=== PATIENT | male | born 1940 | race Caucasian/White ===

== ENCOUNTER 2023-11-19 19:17 | Observation (INO) | payer MEDICARE, OTHER, SELFPAY ==
[2023-11-19] VITALS (9 sets, daily range): BP systolic 114–133; BP diastolic 53–67; PULSE 69; O2SAT 99; BMI 29.1
[2023-11-19 12:31] LABS: % Basophils 0.7 % (0-2); % Eosinophils 3.6 % (0-6); % Immature Granulocytes 0.3 % (0-0.5); % Lymphocytes 22.7 % (20.5-51.1); % Monocytes 13.3 % (1.7-9.3); % Neutrophils 59.4 % (42.2-75.2); Absolute Basophils 0.1 10^3/uL (0-0.2); Absolute Eosinophils 0.2 10^3/uL (0-0.7); Absolute Lymphocytes 1.5 10^3/uL (1.2-3.4); Absolute Monocytes 0.9 10^3/uL (0.1-0.6); Hematocrit 43.7 % (39.0-52.0); Hemoglobin 13.6 g/dL (13.0-18.0); Mean Corp Hgb Conc. 31.1 g/dL (33.0-37.0); Mean Corpuscular Hgb 27.9 pg (27.0-31.0); Mean Corpuscular Volume 89.5 fL (80.0-94.0); Mean Platelet Volume 9.4 fL (7.4-10.4); Nucleated Red Blood Cells % 0 % (-); Platelet Count 188 10^3/uL (130-400); Red Blood Cell Count 4.88 10^6/uL (4.70-6.10); Red Cell Dist. Width 14.2 % (11.5-14.5); White Blood Cell Count 6.7 10^3/uL (4.8-10.8)
[2023-11-19 12:33] LABS: ALT (SGPT) 27 U/L (0-50); AST (SGOT) 34 U/L (17-59); Albumin 4.1 g/dl (3.5-5.0); Alkaline Phosphatase 76 U/L (38-126); Blood Urea Nitrogen 14 mg/dl (9-20); Calcium 9.6 mg/dl (8.4-10.2); Carbon Dioxide 31 mmol/L (22-30); Chloride 105 mmol/L (98-107); Glucose 89 mg/dl (70-99); Potassium 3.8 mmol/L (3.5-5.1); Sodium 144 mmol/L (135-145); Total Bilirubin 1.4 mg/dl (0.2-1.3); Total Protein 6.4 g/dl (6.3-8.2); eGFR > 60.00
[2023-11-19 12:41] LABS: NT-proBNP 1070 pg/ml
[2023-11-19] MEDS: LASIX 40 MG PO (13:24)
--- NOTE | 2023-11-19 13:24 | ED.GENMED ---
History of Present Illness
General
Chief Complaint: Weakness
Source: patient, spouse and family
Time Seen by Provider: 11/19/23 13:03
History of Present Illness
History of Present Illness:
83-year-old male with past medical history of COPD, CHF, previous MA, hypertension, hyperlipidemia presenting to the emergency department for evaluation with family who report that over the last week or so patient has had significantly increased
fatigue noting that he has been sleeping for most of the day which is very atypical for him. They note associated with this fatigue is generalized weakness with difficult time even getting out of bed and transferring himself, 2 falls, bilateral
lower extremity edema and needing significantly more assistance than usual. They note that patient had been still working 2 days a week but had recently quit his job but notes have been still very active around the house including doing yard work
and regular house chores but has been unable to do any of this over the last week. Patient's was in this emergency department around 1 week ago with a viral-like syndrome and family was not sure if patient had similar but notes he has not had
any viral-like symptoms including URI like illness, cough, fevers, sinus congestion, abdominal pain, nausea, vomiting or urinary symptoms.
Past History
Past History
ED Past Medical History: Arrthythmia (Details unknown), CAD, CHF, COPD, HTN, Hypercholesterolemia, MA, Valvular disease and Other (Ischemic cardiomyopathy, hypertension, recurrent UTIs , prostatic hypertrophy, urinary retention, hearing impairment
in the left ear, impaired vision, joint pain, heart valve disorder); Negative NIDDM
ED Past Surgical History: Cardiac (Cardiac stents) and Other (TURP)
Patient has exhibited threatening behavior?: No
PSI?: No
Social History
Tobacco: Former smoker
Alcohol: Occasional
Drug: None
Personal:
Living: with family
Employment: Retired
Family History
Family History: Hypertension
Review of Systems
Review of Systems
All Other Systems: ROS reviewed and negative except as documented in HPI and ROS
Phy Exam
Physical Exam
Physical Exam:
GENERAL: Alert , in no apparent distress, soft-spoken
EYE: Clear conjunctiva
NECK: Supple
ENT: o/p clr, mmm.
CARDIAC: Regular rate and rhythm, systolic murmur at the left sternal border.
LUNGS: Faint wheeze in the posterior lung zeng at the bases bilateral, no respiratory distress, no tachypnea, no accessory muscle use
ABDOMEN: Soft, without focal tenderness, no r/g, no cvat
NEUROLOGICAL: Alert and oriented
SKIN: Warm and dry, skin intact.
MUSCULOSKELETAL: Trace pitting bilateral edema, well perfused.
PSYCH: Normal and appropriate interaction.
Scores
Heart Failure Risk
Heart Failure Risk Score: Yes
History of Stroke or TIA: No
History of intubation for respiratory distress: No
Heart rate on ED arrival >/= 110: No
SaO2 <90% on arrival on room air: No
HR >/=110 during 3min walk test (or too ill to perform test): Yes
ECG has acute ischemic changes: No
Urea >/=12mmol/L (BUN 33.6mg/dL): No
Serum CO2>/=35mmol/L: No
Troponin I or T elevated to MA Level (0.4mg/dL): No
NT-proBNP >/=5,000ng/L (5,000pg/ml): No
HF Risk Score: 2
Admission Status: MEDIUM RISK 9.2% Consider observation or discharge to home with homecare & f/u visit to PCP/Fireworks Inspector, or SNF for treatment
Heart Score for Chest Pain Patients
STEMI patient?: Not applicable
Withdrawal Assessment of Alcohol
Withdrawal Assessment Completed?: Not applicable
Course
Orders/Labs/Results
Orders:
Orders
11/19/23 11:51
CR Chest - 2 Views Urgent
Comment:
Reason For Exam: respiratory distress
11/19/23 11:54
Complete Blood Count/With Diff Urgent
Comprehensive Metabolic Panel Urgent
NT-proBNP Urgent
11/19/23 13:22
Furosemide [Lasix] 40 mg .ROUTE .STK-MED ONE
Furosemide [Lasix] 40 mg PO NOW STA
Physical Therapy Consult [Pt Eval And Treat] Urgent
Activity Level: Ambulate
11/19/23 13:31
Electrocardiogram (*1) Urgent
Reason for Study: Fatigue / Weakness
EKG- Treatment ONCE
11/19/23 14:08
Case Management Consult ONCE
Case Management Consult: Discharge Planning
11/19/23 18:38
Admit/Transfer Patient As Directed
Co-Sign Provider:
Level of Care: Observation services
Assign to:: Telemetry
Physician / Group: Dr. Jhon Chirinos/Hospitalists
Diagnosis: Generalized Weakness
Reason for Telemetry: Arrhythmia
Date to Stop Telemetry: 11/22/23
Time to Stop Telemetry: 11:00
11/19/23 18:41
Code Status As Directed
Resuscitation Status: Full Code
11/19/23 18:47
Pt Eval And Treat Routine
Activity Level: As Tolerated
11/19/23 18:48
Orthostatic Vital Signs As Directed
Orthostatic VS Frequency: Daily
11/22/23 11:00
DC Protocol for Telemetry ONCE
Abnormal Lab Results
11/19/23
11:54
MCHC 31.1 L g/dL
(33.0-37.0)
Absolute Monos (auto) 0.9 H 10^3/uL
(0.1-0.6)
Monocytes % 13.3 H %
(1.7-9.3)
Carbon Dioxide 31 H mmol/L
(22-30)
Total Bilirubin 1.4 H mg/dl
(0.2-1.3)
11/19/23 11:54
11/19/23 11:54
Vital Signs
Initial and Last Documented VS:
Initial Vital Signs
Temp Pulse Resp BP Pulse Ox
98.0 F 68 19 126/61 95
11/19/23 11:48 11/19/23 11:48 11/19/23 11:48 11/19/23 11:48 11/19/23 11:48
Last Documented Vital Signs
Temp Pulse Resp BP Pulse Ox
98.0 F 69 17 131/58 92
11/19/23 11:48 11/19/23 18:45 11/19/23 18:45 11/19/23 14:00 11/19/23 18:45
MDM/Problems Addressed
Differential Diagnosis Includes:
CHF, COPD, viral syndrome, electrolyte derangement
MDM/Problems Addressed:
83-year-old male presenting the emergency department for evaluation of generalized fatigue over the last 6 days or so. Family notes during this time he has had 2 separate falls but has had needed significantly more help transferring and moving at
home which is very atypical for the patient. Family notes that he has had some worsening lower extremity edema but patient notes that he has not been feeling dyspnea on exertion or acutely short of breath similar to the last time he needed
admission a little over 1 year ago. Labs have been initiated in triage and are largely unremarkable and reassuring with no leukocytosis, normal hemoglobin, normal electrolytes and a BNP that is at patient's baseline. Chest x-ray shows mild lung
hyperinflation but no signs of infection. He does have some mild lower extremity edema so we will increase his Lasix temporarily from 20 mg to 40 over the next couple of days. Will order physical therapy consult to help with disposition planning.
Reassessment following.
Chronic conditions affecting care: COPD and Other (CHF)
*Radiology
Radiology exam reviewed: preliminary read by ED provider (COPD findings)
*Pulse Oximetry
Patient hypoxic: no
*Electrical Engineering Professor Interpretation
Rate: normal
Rhythm: sinus
*Critical Care Note
Total Time (30-74mins, 75-104mins- exclusive of procedures): Not Applicable
Patient Management
Discussion with other providers: Hospitalist and Other
Escalation/DeEscalation of care consider admission/obs:
Patient seen by case management and physical therapy. PT did state that patient had some difficulty with transitioning and did not seem fully stable while doing so but once able to get up was able to shuffle but was not stat. Case management
attempted to get patient placed at facility today however unable to do so. Patient not safe disposition home. Will admit overnight for case management to continue working to try and get patient to rehab. Hospitalist team is aware and accepts for
continued evaluation and treatment.
ED Attending Note
-
Portions of this chart may have been created with voice recognition software.� Occasional wrong word or��sound alike� substitutions may have occurred due to the inherent limitations of voice recognition software.
Discharge Plan
Departure
Patient Disposition: Admit
Date of Disposition: 11/19/23
Time of Disposition: 17:41
Presentation/result/management discussed w/ accepting MD/DO: Hospitalist
Discharge Problem:
Generalized weakness, Frequent falls, Edema
Interventions
Interventions:
*Risk Screen - Suicide Last Done: 11/19/23 13:02
*General Assessment Last Done: 11/19/23 11:48
*Neglect/Abuse Screening Last Done: 11/19/23 13:02
ED- Fall Risk Assessment Last Done: 11/19/23 13:03
*ED COVID-19 Vaccine History Last Done: 11/19/23 13:02
ED- Cardiac Assessment Last Done: 11/19/23 13:09
ED- Neurological Assessment Last Done: 11/19/23 13:10
ED- Pulmonary Assessment Last Done: 11/19/23 13:30
--- NOTE | 2023-11-19 15:59 | CM ---
CM received consult for discharge planning. Patient seen bedside with family ( and two daughters, Niya and Li). Patient resides with in a multiple story home, 6 steps to enter, recently moved to first floor of home due to weakness
and falls. Daughters report patient has been falling frequently, patients uses a cane and is unable to assist with getting patient up. Patient uses a cane for ambulation, recently stopped working and driving due to weakness. Patient PCP
[facility], pharmacy [facility]. PT recommendation of SNF for patient, patient with no history of VN or SNF. Family and patient agreeable for short term rehab with goal to return home. Patient confirmed Medicare is primary insurance. CM
spoke with [facility] inside account representative, confirmed patient is eligible for waiver program. Patient will need to be seen by Hospitalist with recommendation of SNF in documentation. TT sent to Physician with update. Referral sent to SNF that participate in
[facility] waiver. CM will continue to follow for all discharge planning needs.
Plan; SNF pending accepting facility, Patient will need to be seen by Hospitalist with recommendation of SNF in documentation.
--- NOTE | 2023-11-19 18:14 | HPS.HSE ---
Family Physician
-
Family Physician: Marcus Mustafa DO
Chief Complaint
-
Generalized Weakness
History of Present Illness
83 y/o male with past medical history of COPD, CHF, coronary artery disease with history of stenting, previous myocardial infarction, BPH s/p TURP, hypertension and hyperlipidemia presented with falls, generalized weakness and fatigue. Patient's
family was present in the room and helped with the patient's history and physical. 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 Patient's was in this
emergency department around 1 week prior with a viral-like syndrome and family was not sure if patient. Denied any fever, chest pain, SOB, numbness or tingling.
Medical History
Past Medical History
Past Medical History: Reports Other (As per HPI above)
Past Surgical History: Reports Other (PTCA with Stents. TURP. Blepharoplasty.)
Social History
Tobacco: Former Smoker
Alcohol: None
Family History
Family History: Cancer
Allergies / Home Medications
Allergies reflects when Allergies were last updated in [employer].
Home Medications with original date entered in [employer]
Allergy/Medication List:
Allergies
Allergy/AdvReac Type Severity Reaction Status Date / Time
No Known Allergies Allergy Verified 08/25/22 04:28
Home Medications
ascorbic acid (vitamin C) 1,000 mg tablet (Vitamin C) 1,000 mg PO Daily Supplement 05/08/18
carvedilol 6.25 mg tablet 6.25 mg PO BID Blood pressure 05/08/18
tamsulosin 0.4 mg capsule (Flomax) 0.4 mg PO QPM Urinary issue 05/08/18
aspirin 81 mg tablet,delayed release 81 mg PO QPM Blood clot prevention/tx 08/25/22
cholecalciferol (vitamin D3) 25 mcg (1,000 unit) capsule (Vitamin D3) 25 mcg PO DAILY Supplement 08/25/22
methenamine hippurate 1 gram tablet (Hiprex) 1 g PO BID Infection 08/25/22
therapeutic multivitamin 1 tab PO DAILY Supplement 08/25/22
budesonide-formoterol HFA 160 mcg-4.5 mcg/actuation aerosol inhaler (Symbicort) 1 inh inhalation R DAILY 11/19/23
furosemide 20 mg tablet (Lasix) 20 mg PO NOON 11/19/23
Review of Systems
-
A 12 point ROS was completed and negative except as noted: Yes
Physical Exam
Vital Signs
Vital Signs
Temp Pulse Resp BP Pulse Ox
98.0 F 72 17 131/58 93
11/19/23 11:48 11/19/23 15:30 11/19/23 15:30 11/19/23 14:00 11/19/23 15:15
Physical Exam
General: No Apparent Distress and Comfortable
HEENT: NormoCephalic and Moist mucous membranes
Respiratory: Decreased Breath Sounds
Cardiac: S1/S2 and Regular Rhythm
GI: Soft, Non Tender and Normal Bowel Sounds
Musculoskeletal: Edema, Left Lower Extremity and Edema, Right Lower Extremity
Skin: Warm and Dry
Neuro: Awake, Alert, AO x 3 and Nonfocal/grossly intact (Cranial Nerves, Strength and Sensation grossly intact bilaterally)
Psych: Calm
Laboratory Results
-
11/19/23 11:54
11/19/23 11:54
Laboratory Results
Total Bilirubin 1.4 mg/dl (0.2-1.3) H 11/19/23 11:54
AST 34 U/L (17-59) 11/19/23 11:54
ALT 27 U/L (0-50) 11/19/23 11:54
Alkaline Phosphatase 76 U/L (38-126) 11/19/23 11:54
Impression/Plan
-
Assessment/Plan
Generalized Weakness
-Possibly a viral syndrome, since patient's family member recently was diagnosed with a viral syndrome
-Check TSH, vitamin B12, vitamin D
-Check CK
-Orthostatic vital signs
-Tele monitoring
-PT/OT
COPD
History of Acute Hypoxemic Respiratory Failure, multifactorial, due to acute COPD exacerbation and acute on chronic heart failure with moderately reduced ejection fraction
-Continue Symbicort or home equivalent
-Continue treatment for CHF as below
CAD with history of stent
Chronic HFpEF
-Continue Coreg
-Continue home Lasix
-Daily weights
-I's and O's
-Seen by cardiology last admission
-Will need to check whether patient is still on statin
Essential Hypertension
-cont BB
BPH:
-cont flomax
FULL/Lovenox
--- NOTE | 2023-11-19 20:00 | PTCARENOTE ---
Pt transferred from ED. Pt ambulated into room with assistance. Pt AAOX3, VSS, able to make needs known. Pt oriented to unit, call jurado within reach, bed in lowest position.
[2023-11-19] MEDS: LOVENOX 40 MG SC (20:36)
[2023-11-19] MEDS: COREG 6.25 MG PO (20:36)
[2023-11-19] MEDS: HIPREX 1 GRAM PO (20:36)
[2023-11-19] MEDS: ASPIR LOW (ENTERIC COATED) 81 MG PO (20:36)
[2023-11-19] MEDS: FLOMAX 0.400000000000000022 MG PO (20:36)
[2023-11-19 21:34] LABS: TSH 4.04 uIU/ml (0.47-4.68)
[2023-11-19 21:51] LABS: Vitamin B12 453 pg/ml (239-931)
[2023-11-20] VITALS (7 sets, daily range): BP systolic 94–121; BP diastolic 44–59; PULSE 68–87; BMI 29.1
--- NOTE | 2023-11-20 02:00 | PTCARENOTE ---
Pt had a 13 beat run of Vtach. Pt resting comfortably in bed, VSS, no chest pain. Niya NICHOLS notified. No new orders at this time.
[2023-11-20 04:16] LABS: % Basophils 0.9 % (0-2); % Eosinophils 4.2 % (0-6); % Immature Granulocytes 0.4 % (0-0.5); % Monocytes 11.2 % (1.7-9.3); % Neutrophils 52.3 % (42.2-75.2); Absolute Basophils 0.1 10^3/uL (0-0.2); Absolute Eosinophils 0.2 10^3/uL (0-0.7); Absolute Lymphocytes 1.7 10^3/uL (1.2-3.4); Absolute Monocytes 0.6 10^3/uL (0.1-0.6); Absolute Neutrophils 2.9 10^3/uL (1.4-6.5); Hematocrit 35.2 % (39.0-52.0); Hemoglobin 11.9 g/dL (13.0-18.0); Mean Corp Hgb Conc. 33.8 g/dL (33.0-37.0); Mean Corpuscular Hgb 28.5 pg (27.0-31.0); Mean Corpuscular Volume 84.4 fL (80.0-94.0); Mean Platelet Volume 9.5 fL (7.4-10.4); Nucleated Red Blood Cells % 0 % (-); Platelet Count 173 10^3/uL (130-400); Red Blood Cell Count 4.17 10^6/uL (4.70-6.10); Red Cell Dist. Width 14.4 % (11.5-14.5); White Blood Cell Count 5.5 10^3/uL (4.8-10.8)
[2023-11-20 04:39] LABS: Ammonia < 9 umol/L (9-30)
[2023-11-20 04:45] LABS: ALT (SGPT) 22 U/L (0-50); AST (SGOT) 29 U/L (17-59); Albumin 3.4 g/dl (3.5-5.0); Alkaline Phosphatase 69 U/L (38-126); Blood Urea Nitrogen 15 mg/dl (9-20); Calcium 8.9 mg/dl (8.4-10.2); Carbon Dioxide 29 mmol/L (22-30); Chloride 107 mmol/L (98-107); Creatine Phosphokinase 45 U/L (55-170); Estimated Creatinine Clearance 64 ml/min; Glucose 97 mg/dl (70-99); Magnesium 2.2 mg/dl (1.6-2.3); Potassium 3.5 mmol/L (3.5-5.1); Sodium 140 mmol/L (135-145); Total Bilirubin 1.2 mg/dl (0.2-1.3); Total Protein 5.4 g/dl (6.3-8.2); eGFR > 60.00
[2023-11-20] MEDS: COREG 6.25 MG PO ×2 (07:31→21:10)
[2023-11-20] MEDS: HIPREX 1 GRAM PO ×2 (07:31→21:10)
[2023-11-20] MEDS: VITAMIN C 1000 MG PO (07:32)
[2023-11-20] MEDS: THERAGRAN 1 TABLET PO (07:32)
[2023-11-20] MEDS: VITAMIN D3 (cholecalciferol) 25 MCG PO (07:32)
[2023-11-20] MEDS: SYMBICORT 160/4.5 MCG INHALER 1 PUFF INH (08:07)
--- NOTE | 2023-11-20 08:42 | CON.CAR ---
Addendum entered and electronically signed by Casa Lake MD 11/20/23 15:29:
-
Orthostasis noted: I will add midodrine.
Addendum entered and electronically signed by Casa Lake MD 11/20/23 14:18:
I saw and examined the patient.
The STAND GRINDER's note was reviewed and I agree with the note.
Comment:
NSVT
- Good LVEF and no syncope favor a conservative approach w/o specific treatment, no EPS/ICD indication
Abrupt change in mood and activity level
- Not typical for acute heart failure presntation
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 differ to medicine
Worsened mitral regurgitation
- Will need to monitor
- Plan echo in 6 months
Chronic HFpEF
- pBNP is lower than in the past
- Echo with stable LVEF, diastolic parameters may be worse
- Will intensify treatment by adding SGLT2-I and MRA and monitoring closely
Severe emphysema noted on recent CT of chest
Chronic CAD with old RI, no angina
Original Note:
Consultation
Consultation Request
Date/Time Consultation Requested: 11/20/2023 08:00
Date/Time Consultation Performed: 11/20/2023 08:20
Requesting Provider: Dr. Chirinos
Performing Provider: SIMONE Burrell for Dr. Lake
Reason for Consultation: NSVT
Medical History
-
Chief Complaint: Fatigue
History of Present Illness:
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
with a chief complaint of weakness. He was working up until 2 weeks ago part-time. He reports he has been in bed and has been having a few falls. He denies a prodrome. He denies dizziness. He denies chest pain. He denies shortness of breath.
He reports he is very fatigued and just feels exhausted. Cardiology was consulted for NSVT found on telemetry overnight.
Past Medical History
Past Medical History: CAD, CHF (ICM), COPD, Hypercholesterolemia and Valvular Disease (mitral regurgitation, aortic regurgitation)
Past Surgical History: Urological
Social History
Tobacco: Former Smoker
Drug: None
Personal:
Living: With Family
Employment: Retired (Recently [~2 weeks])
Family History
Family History: Reviewed & Not Pertinent
Allergies / Home Medications
Allergy/AdvReac Type Severity Reaction Status Date / Time
No Known Allergies Allergy Verified 08/25/22 04:28
�Medication �Instructions �Recorded �Confirmed �Type
ascorbic acid (vitamin C) 1,000 mg 1,000 mg PO Daily Supplement 05/08/18 11/19/23 History
tablet (Vitamin C)
carvedilol 6.25 mg tablet 6.25 mg PO BID Blood pressure 05/08/18 11/19/23 History
tamsulosin 0.4 mg capsule (Flomax) 0.4 mg PO QPM Urinary issue 05/08/18 11/19/23 History
aspirin 81 mg tablet,delayed 81 mg PO QPM Blood clot 08/25/22 11/19/23 History
release prevention/tx
cholecalciferol (vitamin D3) 25 25 mcg PO DAILY Supplement 08/25/22 11/19/23 History
mcg (1,000 unit) capsule (Vitamin
D3)
methenamine hippurate 1 gram 1 g PO BID Infection 08/25/22 11/19/23 History
tablet (Hiprex)
therapeutic multivitamin 1 tab PO DAILY Supplement 08/25/22 11/19/23 History
budesonide-formoterol HFA 160 1 inh inhalation R DAILY 11/19/23 11/19/23 History
mcg-4.5 mcg/actuation aerosol
inhaler (Symbicort)
furosemide 20 mg tablet (Lasix) 20 mg PO NOON 11/19/23 11/19/23 History
Review of Systems
-
History Source: Patient
All other systems: Negative unless noted
Constitutional: Fatigue
EENT: No Symptoms
Respiratory: No Symptoms
Cardiac: No Symptoms
Abdomen/GI: No Symptoms
: No Symptoms
Musculoskeletal: No Symptoms
Skin: No Symptoms
Neurological: Weakness
Endocrine: No Symptoms
Hematologic/Lymphatic: No Symptoms
Physical Exam
Vital Signs
Temp Pulse Resp BP Pulse Ox
97.5 F 68 16 121/56 94
11/20/23 07:00 11/20/23 08:10 11/20/23 08:10 11/20/23 07:00 11/20/23 08:10
Lab Results
11/20/23 03:45
11/20/23 03:45
Yzs-X-Kyrwdrhussj Pept 1070 pg/ml 11/19/23 11:54
Physical Exam
General: Well Developed, Well Nourished, No Apparent Distress and Comfortable
HEENT: Normocephalic, Anicteric and Moist Mucous Membranes
Respiratory: Clear and Non Labored Respirations
Cardiac: S1/S2 and Regular Rhythm
Breast: Deferred by me
GI: Soft, Non Tender, Non Distended and Normal Bowel Sounds
Rectal: Deferred by Provider
Genito-urinary: No Costovertebral Tender
Musculoskeletal: No Clubbing, No Cyanosis and No Edema
Skin: Warm and Dry
Neuro: AO x 3
Hematologic/Lymphatic: No Lymphadenopathy
Psych: Calm
Impression / Plan
-
NSVT, 16 beats
-Asymptomatic (asleep)
-K & Mg stable
-On carvedilol
-Echocardiogram
HFrEF, ICM (last LVEF ~50%, has been 40% previously)
-He does not appear to be in acute/decompensated HF
-We can consider addition of SGLT2, MRA, or ARNI but the patient preferred a simplified regimen in the past
-Follow daily weight, I/O
CAD
-Stable without CP
-Continue ASA & BB and consider resumption of statin
LBBB, new compared to prior EKG
Fatigue, ongoing, per primary
HLD, he was on rosuvastatin 20mg at his last office visit
Mild to moderate mitral regurgitation
Mild aortic regurgitation
Data Reviewed
-
EKG: Report Reviewed by me (Sinus rhythm, first degree AV block, PVCs, LBBB, rate 70)
Radiology: Report Reviewed by me (CXR: Mild hyperinflation, with vascular crowding at each lung base, suggestive of COPD in the correct clinical setting.)
Medical Tests (Nuc Med, Echo etc): Report Reviewed by me (Echo as above)
Labs: Labs Reviewed by me
Old Records: Reviewed
[2023-11-20] MEDS: LASIX 20 MG PO (11:47)
[2023-11-20 13:36] LABS: Urine Albumin Negative (Neg - Trace); Urine Bilirubin Negative (Negative); Urine Character Clear (Clear); Urine Color Yellow; Urine Glucose Negative (Negative); Urine Ketone Negative (Negative); Urine Leukocyte Negative (Negative); Urine Nitrite Negative (Negative); Urine Occult Blood Negative (Negative); Urine Specific Gravity 1.015 (<1.030); Urine Urobilinogen Negative (Neg - 1+)
--- NOTE | 2023-11-20 14:58 | CON.NEURO4 ---
Addendum entered and electronically signed by Oswald Albert MD 11/20/23 15:57:
Studies reviewed.
I have personally examined the patient. I reviewed and agree with the ELECTRIC SCREW DRIVER OPERATOR's Note.
My addenda:
Awake, alert, interactive. No acute distress.
Speech intact. Bradyphrenic.
Follows 2-step requests w/ minimal difficulty. No tremor.
Extra-ocular movements grossly intact.
Facial movements full and symmetric. Hearing intact to normal conversational volume.
Normal UE movements bilaterally.
Neck: full ROM.
Chest: no dyspnea
Heart: no JVD
Ext: (-) Clubbing, (-) Cyanosis, (-) Edema
IMPRESSIONS/RECOMMENDATIONS:
Abrupt onset of generalized weakness and fatigue
In a patient now found to have significant orthostatic hypotension
follow orthostatic blood pressures with 3-minute increments between each blood pressure check
Provide abdominal binder
Consider additional neuroimaging if the patient does not have significant improvements with improved orthostasis
D/W patient / family
Will continue to follow patient.
Original Note:
Documented by User: Stephanie Reeves NP 11/20/23 15:38
Consultation - Neurology 4
-
CONSULTING PHYSICIAN: Oswald Albert MD
REFERRING PHYSICIAN: Hospitalists/Dr. Chirinos
DICTATED BY: SIMONE Vidal
DATE/TIME OF REQUEST: 11/20/23
DATE/TIME OF CONSULTATION: 11/20/23
Reason for Consultation: Weakness, fatigue
History of Present Illness:
This is an 83-year-old right-handed male who has presented to the hospital on 11/19/23 with report of generalized weakness, extreme fatigue, and brain fog. Patient reports that at baseline he is very active and until two weeks ago he was still
working two days a week. 10 days ago on 11/08/23 during the heat wave patient and his family report the he started to feel extremely worn out and had to go home from work early due to not being able to keep up. Then one week ago on 11/13/23 he started
to be extremely fatigued to the point of falling asleep mid conversation, napping frequently, and he noticed some swelling in his ankles. He has had difficultly with position changes and has fallen 3-5 times over the past month while going from
sitting to standing. While walking he has not had any falls. His symptoms seemed to minimally improve with significant rest, prompting his family to bring him to the ER for evaluation yesterday (11/19/23). Patient reports feeling cognitively sharper
today but physically still weak. He denies any headache, dizziness, vision changes, speech/swallowing difficulty, numbness, focal weakness, chest pain, palpitations, and shortness of breath. He has been using a can for ambulation once in a while for
the past several years. Orthostatic vital signs are positive here with his systolic blood pressure dropping from 121 to 94 when going from lying to standing. He is taking aspirin 81mg daily for cardiac purposes and denies any history of stroke.
Past Medical History: HLD, CAD, mitral and aortic regurgitation, CHF (ischemic cardiomyopathy), [place], COPD, recurrent PNA, frequent UTIs, hearing loss, BPH, benign hepatic cyst, [place]ANGE[place]
Surgical History: Cardiac stent, TURP, cataract removal
Family History: Reviewed and noncontributory.
Social History: Former smoker. Denies alcohol and illicit drug use.
Allergies: No known allergies.
Home Medications: See below.
Review of Symptoms:
Patient denies any fever, headache, chest pain, shortness of breath, GI or symptoms.
�Per the HPI.�All systems are reviewed negative except above.
Physical Exam:
The patient is afebrile, abdomen is nondistended, breathing is unlabored, skin is warm and dry, trace bilateral lower extremity edema.
NIH Stroke Scale:
I performed the NIH stroke scale on the patient on 11/20/23 at 1500. The patient scored 0 points on the NIH stroke scale assessment, which were assigned as follows: See below.
Neurologic Examination:
The patient is awake, alert and oriented x 3. Next hol- 21 of November, most recent holiday- 's day. He is able to follow one-step commands and answer questions appropriately. There is no aphasia or dysarthria. On cranial nerve assessment,
pupils are 3 mm bilateral, round and reactive to light and accommodation. Visual yoder are full. Extraocular movements are intact. Facial sensations are intact and bilaterally symmetrical, there is no facial asymmetry. Hearing is diminished
bilaterally to normal conversation volume. Tongue palate and uvula are midline. Sternocleidomastoid strengths are full bilaterally. Motor strengths are 5/5 bilateral upper and lower extremities on medical research [place] scale. Unable to stand up
from seated position without assistance. There is no drift or involuntary movement noted. Deep tendon reflexes are 2+ bilateral upper and absent bilateral lower extremities and Babinski is absent bilaterally. There was no extinction noted on double
simultaneous stimulation. Coordination is intact by finger to nose bilaterally. Right arm satellites around left arm.
Lab Results: See below.
Neuro Imaging: None.
Differentials for the patient's presentation include:
1. Orthostasis likely producing profound fatigue, weakness, and cognitive slowing.
2. Low concern for stroke producing symptoms.
Patient has the following risk factors for their symptoms: CHF, lasix, flomax, carvedilol
Recommendations:
-Check orthostatic vital signs BID.
-Abdominal binder, GILDARDO stockings, slow position changes, and medication adjustments per Cardiology for orthostasis.
-If symptoms do not improve with stabilization of blood pressure, consider MRI brain imaging.
-Goal normotension.
-DVT prophylaxis.
-PT/OT/ST evaluations.
Discussed patient care with: Dr. Albert, the patient, patient's family
Vital Signs and Labs
-
Vital Signs and Labs:
Vital Signs
Temp Pulse Resp BP Pulse Ox
98.0 F 74 16 117/55 93
11/20/23 11:11 11/20/23 11:11 11/20/23 11:11 11/20/23 11:11 11/20/23 11:11
Lab Results
11/20/23 03:45
11/20/23 03:45
Sodium 140 mmol/L (135-145) 11/20/23 03:45
Potassium 3.5 mmol/L (3.5-5.1) 11/20/23 03:45
BUN 15 mg/dl (9-20) 11/20/23 03:45
Glucose 97 mg/dl (70-99) 11/20/23 03:45
Calcium 8.9 mg/dl (8.4-10.2) 11/20/23 03:45
Sea-Z-Szzbdhrheul Pept 1070 pg/ml 11/19/23 11:54
Vitamin B12 Cancelled 11/19/23 20:05
Medications
-
Active Medications
Generic Name Dose Route Start Last Admin
Trade Name Freq PRN Reason Stop Dose Admin
Ascorbic Acid 1,000 mg 11/20/23 08:00 11/20/23 07:32
Ascorbic Acid 500 Mg Tablet PO 12/18/23 07:59 1,000 mg
DAILY MILLA Administration
Aspirin 81 mg 11/19/23 20:05 11/19/23 20:36
Aspirin 81 Mg (Enteric Coated) Tablet PO 12/17/23 20:04 81 mg
QPM MILLA Administration
Bisacodyl 10 mg 11/19/23 20:05
Bisacodyl 10 Mg Rectal Suppository RECTAL 12/17/23 20:04
[id number] PRN
constipation
Budesonide/Formoterol Fumarate 1 puff 11/20/23 08:00 11/20/23 08:07
Symbicort Inhaler 160/4.5 INH 12/18/23 07:59 1 puff
R DAILY MILLA Administration
Protocol
Carvedilol 6.25 mg 11/19/23 20:05 11/20/23 07:31
Carvedilol 6.25 Mg Tablet PO 12/17/23 20:04 6.25 mg
BID MILLA Administration
Cholecalciferol 25 mcg 11/20/23 08:00 11/20/23 07:32
Cholecalciferol (Vitamin D3) 25 Mcg Tablet (1,000 Units) PO 12/18/23 07:59 25 mcg
DAILY MILLA Administration
Dapagliflozin 10 mg 11/21/23 08:00
Dapagliflozin (Farxiga) 10 Mg Tablet PO 12/19/23 07:59
DAILY MILLA
Enoxaparin Sodium 40 mg 11/19/23 20:05 11/19/23 20:36
Enoxaparin Sodium 40 Mg/0.4 Ml Syringe SC 12/17/23 20:04 40 mg
QPM MILLA Administration
Furosemide 40 mg 11/20/23 14:19
Furosemide 20 Mg Tablet PO 12/18/23 11:59
NOON MILLA
Methenamine Hippurate 1 gram 11/19/23 20:05 11/20/23 07:31
Methenamine Hippurate 1 Gram Tablet PO 1 gram
BID MILLA Administration
Midodrine 5 mg 11/20/23 18:00
Midodrine 5 Mg Tablet PO 12/18/23 17:59
TID@0800,1300,1800 MILLA
Polyethylene Glycol 17 grams 11/19/23 20:05
Polyethylene Glycol Powder 17 Grams Packet PO 12/17/23 20:04
DAILYPRN PRN
constipation
Senna/Docusate Sodium 1 tablet 11/19/23 20:05
Docusate W/Senna (Beth-Colace) Tablet PO 12/17/23 20:04
BIDPRN PRN
constipation
Sodium Chloride 0 flush 11/19/23 21:00
Sodium Chloride 0.9% (Flush) Syringe IV 12/17/23 20:59
PER PROTOCOL MILLA
Spironolactone 25 mg 11/20/23 15:00 11/20/23 15:35
Spironolactone 25 Mg Tablet PO 12/18/23 14:59 25 mg
DAILY MILLA Administration
Tamsulosin HCl 0.4 mg 11/19/23 20:05 11/19/23 20:36
Tamsulosin 0.4 Mg Capsule PO 12/17/23 20:04 0.4 mg
QPM MILLA Administration
Home Medications
�Medication �Instructions �Recorded
ascorbic acid (vitamin C) 1,000 mg 1,000 mg PO Daily Supplement 05/08/18
tablet (Vitamin C)
carvedilol 6.25 mg tablet 6.25 mg PO BID Blood pressure 05/08/18
tamsulosin 0.4 mg capsule (Flomax) 0.4 mg PO QPM Urinary issue 05/08/18
aspirin 81 mg tablet,delayed 81 mg PO QPM Blood clot 08/25/22
release prevention/tx
cholecalciferol (vitamin D3) 25 25 mcg PO DAILY Supplement 08/25/22
mcg (1,000 unit) capsule (Vitamin
D3)
methenamine hippurate 1 gram 1 g PO BID Infection 08/25/22
tablet (Hiprex)
therapeutic multivitamin 1 tab PO DAILY Supplement 08/25/22
budesonide-formoterol HFA 160 1 inh inhalation R DAILY 11/19/23
mcg-4.5 mcg/actuation aerosol Lung/Breathing Issues
inhaler (Symbicort)
furosemide 20 mg tablet (Lasix) 20 mg PO NOON Fluid 11/19/23
Retention/Swelling
NIH Stroke Score
Subsequent NIH Scale
Date of Subsequent NIH Scale: 11/20/23
Time of Subsequent NIH Scale: 15:00
NIH Stroke Score
Level of Consciousness: 0 - Alert
LOC Questions: 0-Answers both correctly
LOC Commands: 0-Performs both correctly
Best Horizontal Gaze: 0-Normal
Visual Yoder: 0=Normal, no visual loss
Facial Palsy: 0=Normal, symmetrical
Motor - Right Arm: 0=No drift 10 seconds
Motor - Left Arm: 0=No drift 10 seconds
Motor - Right Le-No drift 5 seconds
Motor - Left Le-No drift 5 seconds
Limb Ataxia: 0-Absent
Sensation: 0-Normal
Best Language: 0-No aphasia
Dysarthria: 0-Normal
Extinction and Inattention: 0-No abnormality
Total Score:: 0

Documented by User: Oswald Albert MD 11/20/23 15:49
NIH Stroke Score
NIH Stroke Score
Total Score:: 0
[2023-11-20] MEDS: ALDACTONE 25 MG PO (15:35)
--- NOTE | 2023-11-20 17:17 | CM ---
Chart reviewed and patient visited with and daughter at bedside. All are in agreement with discharge to SNF prior to returning home. They request [facility] for SNF where a bed is available when ready for discharge.
Patient qualifies for the [facility] SNF waiver; I have asked MD to note the need for SNF in his progress note. Discharge was a possibility for today, however neurology was consulted and plan is likely for discharge tomorrow. Prisca at [facility]
updated on discharge plan.
Case discussed with Madison Solitario at [facility] re: SNF waiver.
CM to follow up with Madison ([phone]) when discharge date is known.
Prisca at [facility] can be contacted at [phone] to coordinate discharge.
Plan: Discharge to [facility] SNF when medically cleared.
--- NOTE | 2023-11-20 17:34 | W.PN.HOSP.TC ---
Today's Communication/Plan
-
Orthostasis -- Midodrine and GILDARDO stockings slow position changes'
Vtach overnight
Cardiology and Neurology appreciated
Assessment / Plan
Assessment / Plan
Physical Exam
General: No Apparent Distress and Comfortable
HEENT: Normocephalic and Moist mucous membranes
Respiratory: Decreased Breath Sounds
Cardiac: S1/S2 and Regular Rhythm
GI: Soft, Non Tender and Normal Bowel Sounds
Musculoskeletal: Edema, Left Lower Extremity and Edema, Right Lower Extremity
Skin: Warm and Dry
Neuro: Awake, Alert, AO x 3 and Nonfocal/grossly intact (Cranial Nerves, Strength and Sensation grossly intact bilaterally)
Psych: Calm

Echocardiogram Results (as per cardiology report):
CONCLUSIONS
Low normal left ventricular systolic function.
Basal to mid inferior severe hypokinesis.
Left ventricular ejection fraction is 50-55% by volumetric assessment.
Stage III diastolic dysfunction suggestive of restrictive filling pattern and
increased filling pressures.
Mild left atrial enlargement.
Moderate mitral regurgitation.
Estimated PASP 39 mmHg and estimated RA 3 mmHg.
Compared to prior study of 08/25/2022 the MR has clearly increased from mild-
moderate to moderate. LVEF and LV wall motion changes are unchanged.

Assessment/Plan
Generalized Weakness with Abrupt Change in Mood
Orthostatic Hypotension
-Possibly a viral syndrome, since patient's family member recently was diagnosed with a viral syndrome
-TSH and vitamin B12 noted
-Inpatient vs. outpatient evaluation of Vitamin D deficiency
-CK low
-Orthostatic vital signs positive
-Midodrine added
-Abdominal binder, GILDARDO stockings
-If symptoms do not improve with stabilization of blood pressure, consider MRI brain imaging.
-Neurology consulted, recommendations appreciated
-Tele monitoring
-PT/OT
NSVT
-Cardiology consulted, recommendations appreciated
-Echocardiogram showed good LV ejection fraction and no syncope --> conservative approach w/o specific treatment, no EPS/ICD indication -- as per cardiology
Worsened mitral regurgitation
- Echo in 6 months
COPD
History of Acute Hypoxemic Respiratory Failure, multifactorial, due to acute COPD exacerbation and acute on chronic heart failure with moderately reduced ejection fraction
-Continue Symbicort or home equivalent
-Continue treatment for CHF as below
CAD with history of stent
Chronic HFpEF
-Continue Coreg
-Continue home Lasix
-Daily weights
-I's and O's
-Seen by cardiology last admission
-Cardiology consulted: they plan to add SGLT2-I and MRA and monitoring closely
-Will need to check whether patient is still on statin
Essential Hypertension
-cont BB
BPH:
-cont flomax
FULL/Lovenox
Anticipated Discharge: 24 - 48 hours
Subjective/Interval History
-
Date of Service: November 20, 2023
Patient was seen and examined. He remains with generalized weakness, but otherwise denied any other new, significant symptoms or complaints.
Objective Data
-
Vital Signs:
Vital Signs
Temp Pulse Resp BP Pulse Ox
97.9 F 76 16 121/52 92
11/20/23 15:00 11/20/23 15:00 11/20/23 15:00 11/20/23 15:00 11/20/23 15:00
I&O
11/19/23 11/20/23 11/21/23
06:59 06:59 06:59
Intake Total 240 / 240
Output Total 790 / 790
Balance -550 / -550
[2023-11-20] MEDS: ProAmatine 5 MG PO (18:13)
[2023-11-20] MEDS: LOVENOX 40 MG SC (18:13)
[2023-11-20] MEDS: FLOMAX 0.400000000000000022 MG PO (18:13)
[2023-11-20] MEDS: ASPIR LOW (ENTERIC COATED) 81 MG PO (18:13)
--- NOTE | 2023-11-20 18:45 | PTCARENOTE ---
Patient and family complains of excessive coughing and clear mucus production, requesting Symbicort. This RN informed Symbicort would not help w/ coughing and mucus. Dr. Chirinos aware, ordered Mucinex and COVID test, sent to lab.
[2023-11-20 19:18] LABS: COVID-19 Antigen Negative (Negative)
[2023-11-20] MEDS: MUCINEX 1200 MG PO (21:09)
[2023-11-21 03:00] VITALS: BP 109/67
[2023-11-21 06:00] VITALS: BMI 28.5
[2023-11-21 07:00] VITALS: BP 101/46; BP 112/56; BP 114/46; PULSE 64; PULSE 72; PULSE 73
[2023-11-21 07:37] LABS: % Basophils 0.6 % (0-2); % Immature Granulocytes 0.3 % (0-0.5); % Lymphocytes 22.5 % (20.5-51.1); % Neutrophils 62.6 % (42.2-75.2); Absolute Eosinophils 0.2 10^3/uL (0-0.7); Absolute Lymphocytes 1.5 10^3/uL (1.2-3.4); Absolute Monocytes 0.7 10^3/uL (0.1-0.6); Absolute Neutrophils 4.1 10^3/uL (1.4-6.5); Hematocrit 35.8 % (39.0-52.0); Hemoglobin 11.8 g/dL (13.0-18.0); Mean Corpuscular Hgb 28.9 pg (27.0-31.0); Mean Corpuscular Volume 87.5 fL (80.0-94.0); Mean Platelet Volume 9.9 fL (7.4-10.4); Nucleated Red Blood Cells % 0 % (-); Platelet Count 164 10^3/uL (130-400); Red Blood Cell Count 4.09 10^6/uL (4.70-6.10); Red Cell Dist. Width 14.4 % (11.5-14.5); White Blood Cell Count 6.6 10^3/uL (4.8-10.8)
[2023-11-21 07:54] LABS: ALT (SGPT) 19 U/L (0-50); AST (SGOT) 24 U/L (17-59); Albumin 3.4 g/dl (3.5-5.0); Alkaline Phosphatase 64 U/L (38-126); Blood Urea Nitrogen 17 mg/dl (9-20); Calcium 9.2 mg/dl (8.4-10.2); Carbon Dioxide 27 mmol/L (22-30); Chloride 106 mmol/L (98-107); Estimated Creatinine Clearance 57 ml/min; Glucose 95 mg/dl (70-99); Potassium 3.7 mmol/L (3.5-5.1); Sodium 140 mmol/L (135-145); Total Bilirubin 1.6 mg/dl (0.2-1.3); Total Protein 5.4 g/dl (6.3-8.2); eGFR > 60.00
[2023-11-21] MEDS: SYMBICORT 160/4.5 MCG INHALER 1 PUFF INH (07:54)
[2023-11-21] MEDS: MUCINEX 1200 MG PO (07:56)
[2023-11-21] MEDS: ALDACTONE 25 MG PO (07:57)
[2023-11-21] MEDS: ProAmatine 5 MG PO ×3 (07:57→16:15)
[2023-11-21] MEDS: VITAMIN D3 (cholecalciferol) 25 MCG PO (07:57)
[2023-11-21] MEDS: COREG 6.25 MG PO (07:57)
[2023-11-21] MEDS: FARXIGA 10 MG PO (07:57)
[2023-11-21] MEDS: HIPREX 1 GRAM PO (07:57)
[2023-11-21] MEDS: VITAMIN C 1000 MG PO (07:57)
--- NOTE | 2023-11-21 08:10 | PTCARENOTE ---
Addendum entered by Danuta Chambers RN 11/21/23 11:12:
Crackles auscultated to bilateral posterior lung bases, increased from yesterday. Dr. Chirinos aware of all findings, CXR ordered, Speech eval ordered.
Original Note:
During AM med pass, this RN noted patient will hold meds and liquids in mouth for a while before he will swallow. Nursing level speech therapy consult ordered.
--- NOTE | 2023-11-21 09:15 | W.PN.CD ---
Addendum entered and electronically signed by Casa aLke MD 11/21/23 14:27:
-
-
Please call with questions. We will sign off.
-
-
Addendum entered and electronically signed by Casa Lake MD 11/21/23 14:27:
I saw and examined the patient.
The PUBLICATION MANAGER's note was reviewed and I agree with the note.
Comment: Again I do not think his cardiac conditions have precipiced this abrupt clinical decline. We intensified HF treatment given the worsened MR but pBNP lower than in past and CXR unimpressive for heart failure. Midodrine added for
orthostasis. Consider psych eval for possible depression. Plan BMP in 1 week, f/u in our office in 3-4 weeks. Likely echo in 6 months.
Original Note:
Today's Communication / Plan
-
-continue increased Lasix and new meds: spironolactone, Farxiga- monitor volume
-continue midodrine and follow orthos (which seem to be better this AM)
-continue BB and follow telemetry
Impression / Plan
-
Jamar Lees is an 83 year old male (known to Dr. Lake, his primary caustic room attendant) with COPD, ICM (EF 50%), CAD with RCA stenting 2008 (with same day in-stent thrombosis requiring treatment), mild to moderate mitral regurgitation, and COPD who presents
with a chief complaint of weakness. Cardiology was consulted for NSVT on monitor.
NSVT:
-Good LVEF and no syncope favor a conservative approach w/o specific treatment, no EPS/ICD indication
-continue BB and follow telemetry
-K+3.5, now 3.7- spironolactone added
HFrEF, ICM (last LVEF ~50%, has been 40% previously), chronic:
-Echo 11/20/23: Low normal left ventricular systolic function. Basal to mid inferior severe hypokinesis. EF 50-55%. Stage III diastolic dysfunction. Moderate mitral regurgitation. Estimated PASP 39 mmHg.
-Echo with stable LVEF, diastolic parameters may be worse
-spironolactone, Farxiga added, Lasix dose increased this admit
-follow volume
Mitral regurgitation:
-Will need to monitor
-Plan echo in 6 months
Orthostasis:
-improved
-midodrine added
-compression socks and abdominal binder placed
-PT/OT involved
Abrupt change in mood and activity level:
-Not typical for acute heart failure presentation
-Does he need neuro or psych input or COMPUTER ENGINEERING PROFESSOR imaging? Defer to medicine. Neuro is involved.
CAD:
-no angina
LBBB, new compared to prior EKG
Fatigue, ongoing, per primary
HLD, he was on rosuvastatin 20mg at his last office visit
Mild to moderate mitral regurgitation
Mild aortic regurgitation
Severe emphysema noted on recent CT of chest
Subjective:
feeling okay
denies SOB, but continues to have cough (productive, clear)
Physical Exam
Vital Signs/Labs
Vital Signs
Temp Pulse Resp BP Pulse Ox
97.8 F 87 16 101/46 93
11/21/23 07:00 11/21/23 07:55 11/21/23 07:55 11/21/23 07:00 11/21/23 07:55
11/20/23 11/21/23 11/22/23
06:59 06:59 06:59
Actual Weight 81.703 kg 79.923 kg
11/21/23 07:03
11/21/23 07:03
Magnesium 2.2 mg/dl (1.6-2.3) 11/20/23 03:45
TSH Cancelled 11/19/23 20:05
11/19/23
11:54
Csq-C-Vewguiiyvbg Pept 1070
Physical Exam
Constitutional: No acute distress
EENT: Anicteric
Cardiovascular: Rhythm & rate is regular and Pedal edema is absent
Respiratory: Respiratory effort normal and Lungs clear to auscul.
Neuro/Psych: AO x 3
Other: Skin (warm and dry)
Data Reviewed
-
Date of Service: November 21, 2023
EKG: Other (SR, brief NSVT 3 seconds 11/20/23)
Echo: Other (in my note)
Labs: Labs Reviewed by me
--- NOTE | 2023-11-21 10:51 | W.PN.HOSP.TC ---
Addendum entered and electronically signed by Jhno Chirinos MD 11/21/23 12:50:
Patient needs to go to a SNF due to his weakness.
Original Note:
Today's Communication/Plan
-
Pulmonary Crackles
Reports of Delayed Swallowing
-CXR
-Speech consult
-Evaluate for aspiration, but not antibiotics at this time
Appreciate cardiology
Assessment / Plan
Assessment / Plan
Physical Exam
General: Not in acute distress
HEENT: Normocephalic and Moist mucous membranes
Respiratory: Decreased Breath Sounds
Cardiac: S1/S2 and Regular Rhythm
GI: Soft, Non Tender and Normal Bowel Sounds
Musculoskeletal: Edema, Left Lower Extremity and Edema, Right Lower Extremity
Skin: Warm and Dry
Neuro: Awake, Alert, AO x 3 and Nonfocal/grossly intact (Cranial Nerves, Strength and Sensation grossly intact bilaterally)
Psych: Calm

Echocardiogram Results (as per cardiology report):
CONCLUSIONS
Low normal left ventricular systolic function.
Basal to mid inferior severe hypokinesis.
Left ventricular ejection fraction is 50-55% by volumetric assessment.
Stage III diastolic dysfunction suggestive of restrictive filling pattern and
increased filling pressures.
Mild left atrial enlargement.
Moderate mitral regurgitation.
Estimated PASP 39 mmHg and estimated RA 3 mmHg.
Compared to prior study of 08/25/2022 the MR has clearly increased from mild-
moderate to moderate. LVEF and LV wall motion changes are unchanged.

Assessment/Plan
Generalized Weakness with Abrupt Change in Mood
Orthostatic Hypotension - IMPROVED
-Possibly a viral syndrome, since patient's family member recently was diagnosed with a viral syndrome
-TSH and vitamin B12 noted
-Inpatient vs. outpatient evaluation of Vitamin D deficiency
-CK low
-Orthostatic vital signs positive
-Midodrine added - continue
-Abdominal binder, GILDARDO stockings
-If symptoms do not improve with stabilization of blood pressure, consider MRI brain imaging.
-Neurology consulted, recommendations appreciated
-Tele monitoring
-PT/OT
Pulmonary Crackles
Reports of Delayed Swallowing
-CXR
-Speech consult
NSVT
-Cardiology consulted, recommendations appreciated
-Echocardiogram showed good LV ejection fraction and no syncope --> conservative approach w/o specific treatment, no EPS/ICD indication -- as per cardiology
Worsened mitral regurgitation
- Echo in 6 months
COPD
History of Acute Hypoxemic Respiratory Failure, multifactorial, due to acute COPD exacerbation and acute on chronic heart failure with moderately reduced ejection fraction
-Continue Symbicort or home equivalent
-Continue treatment for CHF as below
CAD with history of stent
Chronic HFpEF
-Continue Coreg
-Continue home Lasix
-Daily weights
-I's and O's
-Seen by cardiology last admission
-Cardiology consulted: added SGLT2-I and MRA and monitoring closely
-Will need to check whether patient is still on statin
-Will need basic metal profile in roughly one week and again in three weeks
-Patient will need to see loom operator apprentice Dr. Lake (or someone from his office) weeks after leaving acute rehab
Essential Hypertension
-cont BB
BPH:
-cont flomax
FULL/Lovenox
Anticipated Discharge: Within 24 hours
Subjective/Interval History
-
Date of Service: November 21, 2023
Patient was seen and examined. He denied any new significant symptoms or complaints. Nurse mentioned he has had delayed swallowing.
Objective Data
-
Labs:
Laboratory Results
11/21/23
07:03
WBC 6.6
Hgb 11.8 L
Hct 35.8 L
Plt Count 164
Sodium 140
Potassium 3.7
Chloride 106
Carbon Dioxide 27
BUN 17
Creatinine 0.9
Glucose 95
Calcium 9.2
Total Bilirubin 1.6 H
AST 24
ALT 19
Alkaline Phosphatase 64
Vital Signs:
Vital Signs
Temp Pulse Resp BP Pulse Ox
97.8 F 87 16 101/46 93
11/21/23 07:00 11/21/23 07:55 11/21/23 07:55 11/21/23 07:00 11/21/23 07:55
I&O
11/20/23 11/21/23 11/22/23
06:59 06:59 06:59
Intake Total 240 / 240 0 / 1680
Output Total 790 / 790
Balance -550 / -550 0 / 168
[2023-11-21 11:09] VITALS: BP 119/47
--- NOTE | 2023-11-21 12:39 | PTOTSP ---
Dysphagia Evaluation
Patient known to department from outpatient video swallow study 07/25/2022 which revealed oral/pharyngeal stages to be WFL and no aspiration.
Today, oral stage WFL. Cannot r/o aspiration bedside due to baseline congestion/cough. Chest x-ray 11/18 without PNA. Chest x-ray today not yet completed. Suspect reported pocketing this admission may be due to current respiratory status and/or
reported cognitive slowing. Consider diet below and strategies for medication administration. If chest x-ray concerning for pneumonia, consider repeat swallow study.
Recommend:
1. Regular, Thin Liquids
2. Full supervision and assist as needed
3. Medications - crushed in applesauce
4. Strategies: upright to 90 degrees, small single sips/bites, slow rate, check for pocketing
5. Oral care 3x daily
6. Dysphagia tx at the acute care level.
[2023-11-21] MEDS: LASIX 40 MG PO (13:09)
[2023-11-21 15:00] VITALS: BP 125/57
[2023-11-21 15:27] VITALS: BP 116/49; PULSE 75
--- NOTE | 2023-11-21 15:50 | CM ---
CM spoke with Murphy ([phone]), [facility] underwriting account representative, faxed patients clinical information along with Hospitalist report stating patient needs SNF to [phone]. PERRY received confirmation from Murphy that waiver has been accepted for patient to
go to SNF. CM updated family, patient scheduled for WC van for 5:30 p.m. Family calling to provide payment. PERRY spoke with Prisca from [facility], waiver received, discussed transport time. TT sent to Hospitalist with transportation time. CM will continue
to follow for all discharge planning needs.
[facility] SNF
Report: [phone]
--- NOTE | 2023-11-21 15:50 | W.DS.TRANS ---
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
-
Discharge Instructions:
Sleep Apnea Risk Intermediate
Discharge Diagnosis/Procedures Generalized Weakness with Abrupt Change in Mood
Orthostatic Hypotension - IMPROVED
Non-Sustained Ventricular Tachycardia
Worsened mitral regurgitation
Chronic Obstructive Pulmonary Disease
History of Acute Hypoxemic Respiratory Failure,
multifactorial, due to acute COPD exacerbation
and acute on chronic heart failure with
moderately reduced ejection fraction
Coronary Artery Disease with history of stent
Chronic Heart Failure with preserved ejection
fraction
Essential Hypertension
Benign Prostatic Hyperplasia
Blood Work BMP in one week [this was electronically sent to
[facility]]
Specialty Instructions Weigh Daily
Instructions:
Stand-Alone Forms:
Changes to Home Medications: Yes
Discharge Medications:
DC Medications w/original date entered in [facility]
ascorbic acid (vitamin C) 1,000 mg tablet (Vitamin C) 1,000 mg PO Daily Supplement 05/08/18
carvedilol 6.25 mg tablet 6.25 mg PO BID Blood pressure 05/08/18
tamsulosin 0.4 mg capsule (Flomax) 0.4 mg PO QPM Urinary issue 05/08/18
aspirin 81 mg tablet,delayed release 81 mg PO QPM Blood clot prevention/tx 08/25/22
cholecalciferol (vitamin D3) 25 mcg (1,000 unit) capsule (Vitamin D3) 25 mcg PO DAILY Supplement 08/25/22
methenamine hippurate 1 gram tablet (Hiprex) 1 g PO BID Infection 08/25/22
therapeutic multivitamin 1 tab PO DAILY Supplement 08/25/22
budesonide-formoterol HFA 160 mcg-4.5 mcg/actuation aerosol inhaler (Symbicort) 1 inh inhalation R DAILY Lung/Breathing Issues 11/19/23
dapagliflozin propanediol 10 mg tablet 10 mg PO DAILY #30 tabs 11/21/23
furosemide 20 mg tablet 40 mg (2 x 20 mg) PO NOON #60 tabs 11/21/23
midodrine 5 mg tablet 5 mg PO TID@0800,1300,1800 #90 tabs 11/21/23
spironolactone 25 mg tablet 25 mg PO DAILY #30 tabs 11/21/23
Home Medication Changes
Furosemide dose increased.
Dapagliflozin, Midodrine and Spironolactone are new medications.
Pending Results: No
Total time spent discharging patient (in min): 37
[2023-11-21] MEDS: LOVENOX SC (16:15)
[2023-11-21] MEDS: ASPIR LOW (ENTERIC COATED) 81 MG PO (16:15)
[2023-11-21] MEDS: FLOMAX 0.400000000000000022 MG PO (16:15)
--- NOTE | 2023-11-24 10:10 | W.DCSUMMARY ---
Discharge Summary
Discharge Data
Date of Admission: 11/19/23
Date of Discharge: 11/21/23
Total time spent discharging patient (in min): 37
-
Pending Results: No
Hospital Course
83 y/o male with past medical history of COPD, CHF, coronary artery disease with history of stenting, previous myocardial infarction, BPH s/p TURP, hypertension and hyperlipidemia presented with falls, generalized weakness and fatigue. Over the
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 Patient's was in this emergency department around
1 week prior with a viral-like syndrome and family was not sure if patient had the same viral syndrome. Patient was found to have orthostatic hypotension. Cardiology and Neurology were consulted, and patient had an echocardiogram with good left
ventricular ejection fraction. Patient had non-sustained ventricular tachycardia during the hospitalization, but was found not to need EPS/ICD. Patient's Furosemide dose was increased and he was started on Dapagliflozin, Midodrine and
Spironolactone, as well as abdominal binder and GILDARDO stockings. His orthostasis improved.
Discharge Plan
-
Patient Disposition: Long-Term/SNF
Discharge Diagnosis/Procedures: Generalized Weakness with Abrupt Change in Mood
Orthostatic Hypotension - IMPROVED
Non-Sustained Ventricular Tachycardia
Worsened mitral regurgitation
Chronic Obstructive Pulmonary Disease
History of Acute Hypoxemic Respiratory Failure, multifactorial, due to acute COPD exacerbation and acute on chronic heart failure with moderately reduced ejection fraction
Coronary Artery Disease with history of stent
Chronic Heart Failure with preserved ejection fraction
Essential Hypertension
Benign Prostatic Hyperplasia
Condition: Fair
Blood Work: BMP in one week [this was electronically sent to [facility]]
Specialty Instructions: Weigh Daily- Call MD for wt gain/loss 3 lbs overnight/5 lbs in 1 week
Activity Restrictions/Additional Instructions:
You will need to have a basic metabolic panel labwork done within 1 week from now, and again in 3 weeks from now.
Echocardiogram is needed in 6 months
For Midodrine: AVOID DOSING AFTER EVENING MEAL OR WITHIN 4 HOURS OF BEDTIME
Continue abdominal binder and GILDARDO lower extremity stockings when awake and getting out of bed and awake and out of bed
Referrals:
Lynette Rousseau CRNP [Specified Professional Personl] - 12/11/23 11:20 am
Marcus Mustafa DO [Family Provider] - in less than 1 week (Please recheck Vitamin B12. Evaluation for Vitamin B12 and Vitamin D deficiency.)
Addie Phillips MD [Active] - in one to two weeks (New-onset weakness -- requesting evaluation of whether patient needs an MRI Spine?)
Additional Discharge Medication Instructions: Furosemide dose increased.
Dapagliflozin, Midodrine and Spironolactone are new medications.
Prescriptions:
New
spironolactone 25 mg Tablet
25 mg PO DAILY Qty: 30 0RF
dapagliflozin propanediol 10 mg Tablet
10 mg PO DAILY Qty: 30 0RF
furosemide 20 mg Tablet
40 mg PO NOON Qty: 60 0RF
midodrine 5 mg Tablet
5 mg PO TID@0800,1300,1800 Qty: 90 0RF
Rx Instructions:
Hold for systolic blood pressure>110 mmHg
guaifenesin [Mucinex] 600 mg tablet extended release 12hr
600 mg PO Q12H Qty: 14 0RF
Continued
ascorbic acid (vitamin C) [Vitamin C] 1,000 MG tablet
1,000 mg PO Daily
carvedilol 6.25 MG tablet
6.25 mg PO BID
tamsulosin [Flomax] 0.4 MG capsule
0.4 mg PO QPM
therapeutic multivitamin Tablet
1 tab PO DAILY
aspirin 81 mg Tablet,Delayed Release (Dr/Ec)
81 mg PO QPM
methenamine hippurate [Hiprex] 1 gram Tablet
1 g PO BID
cholecalciferol (vitamin D3) [Vitamin D3] 25 mcg (1,000 unit) Capsule
25 mcg PO DAILY
budesonide-formoterol [Symbicort] 160-4.5 mcg/actuation Hfa Aerosol Inhaler
1 inh INHALATION R DAILY
Discontinued
furosemide [Lasix] 20 mg tablet
20 mg PO NOON
Discharge Orders:
Discharge Patient (As Directed); Ordered 11/21/23
Ordered By: Jhon Chirinos
Discharge Date and Time
Discharge Date/Time: 11/21/23 17:34
Print Language: SERBIAN
== END 2023-11-21 17:34 ==
LOC: 4 WEST ACU 19:17
PROVIDERS: Emergency Medicine; ADMITTING PHYSICIAN Hospitalist; CONSULT PHYSICIAN Psychiatry & Neurology Neurology; EMERGENCY PHYSICIAN Emergency Medicine; FAMILY PHYSICIAN Family Medicine; OTHER PHYSICIAN Internal Medicine Cardiovascular Disease
DX: R53.1 Weakness (principal); I95.1 Orthostatic hypotension; J44.9 Chronic obstructive pulmonary disease, unspecified; I11.0 Hypertensive heart disease with heart failure; I25.2 Old myocardial infarction; E78.5 Hyperlipidemia, unspecified; R53.83 Other fatigue; H54.7 Unspecified visual loss; R29.6 Repeated falls; I50.32 Chronic diastolic (congestive) heart failure; I47.20 Ventricular tachycardia, unspecified; I34.0 Nonrheumatic mitral (valve) insufficiency; I44.7 Left bundle-branch block, unspecified; R60.0 Localized edema; I25.10 Atherosclerotic heart disease of native coronary artery without angina pectoris; E78.00 Pure hypercholesterolemia, unspecified; I25.5 Ischemic cardiomyopathy; N40.1 Benign prostatic hyperplasia with lower urinary tract symptoms; R33.8 Other retention of urine; H91.92 Unspecified hearing loss, left ear; Z87.891 Personal history of nicotine dependence; Z87.440 Personal history of urinary (tract) infections; Z79.51 Long term (current) use of inhaled steroids; Z95.5 Presence of coronary angioplasty implant and graft; Z11.52 Encounter for screening for COVID-19
CPT/HCPCS: 71046; 80053; 81003; 82140; 82550; 82607; 83735; 83880; 84443; 85025; 87811; 92610; 93005; 93306; 94640; 97116; 99285; G0378